=== PATIENT | male | born 2000 | race Caucasian/White ===

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

== ENCOUNTER 2021-05-17 12:30 | Emergency (ER) | payer BC, MEDICAID, OTHER ==
[~2021-05-17] VITALS: Ht 177.8 cm; Wt 84.0 kg
[~2021-05-17 12:30] MED LIST changes: +ADDE20CA3; +ARIP10TA32; +FERR325T18; +GUAN3TAB4
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
[2021-05-17 13:36] VITALS: BP 146/75
[2021-05-17] MEDS ORDERED: HYDR-3713 PO (14:02)
[2021-05-17] MEDS ORDERED: NORCO, ANEXSIA 5/325MG TABLET (HYDROcodone/ACETAMINOPHEN) PO ONE (14:20)
== END 2021-05-17 14:50 | disposition home or self-care (01) ==
LOC: EDBD 12:30 → M ED 12:30
DX: S42.002A Fracture of unspecified part of left clavicle, initial encounter for closed fracture (principal); V49.49XA Driver injured in collision with other motor vehicles in traffic accident, initial encounter; Y92.410 Unspecified street and highway as the place of occurrence of the external cause; K21.9 Gastro-esophageal reflux disease without esophagitis; Z79.899 Other long term (current) drug therapy; Z91.018 Allergy to other foods

== ENCOUNTER 2021-05-23 15:24 | Day surgery (SDC) | payer OTHER ==
[~2021-05-23] VITALS: Ht 190.5 cm; Wt 76.1 kg
[~2021-05-23 15:24] MED LIST changes: -HYDR-4571 PO; -IBUP-1730 PO; -PROAAER10 INH
[2021-05-23] MEDS ORDERED: TRANEXAMIC ACID INJection 1,000 MG in NS 100 ML IV ONE ×2 (16:25→18:00)
[2021-05-23] MEDS ORDERED: ceFAZolin SOD 2 GM in IV 1 EA IV ONE (16:25)
[2021-05-23 21:15] VITALS: BP 138/64
[2021-05-23] MEDS ORDERED: MORPHINE 2 MG/ML 1ML VIAL (J2270) IV PRN (21:45)
[2021-05-23] MEDS ORDERED: IBUP-1730 PO (23:02)
[2021-05-23] MEDS ORDERED: PROAAER10 INH (23:02)
[2021-05-23] MEDS ORDERED: HYDR-4571 PO (23:02)
[2021-05-23] MEDS ORDERED: HOME MED LIST COMPLETE! XX SCH (23:05)
[2021-05-24] MEDS ORDERED: NS 1,000 ML IV ONE
[2021-05-24] MEDS ORDERED: ALBUTEROL 90 MCG/ACT 8GM HFA INHALER INH PRN (00:25)
[2021-05-24 06:00] VITALS: BP 123/57
[2021-05-24] MEDS: KETOROLAC 30 MG/ML 1ML VIAL IV PRN (13:59)
[2021-05-24 14:00] VITALS: BP 123/58
[2021-05-24 21:00] VITALS: BP 124/58
[2021-05-25] MEDS: KETOROLAC 30 MG/ML 1ML VIAL IV PRN (04:06)
== END 2021-05-25 08:48 | disposition home or self-care (01) ==
LOC: M SDC 15:24 → M MSPAV 21:16 → M SDC 05-25 08:48
PROVIDERS: ATTEND Orthopaedic Surgery
DX: Z53.8 Procedure and treatment not carried out for other reasons (principal); S42.022A Displaced fracture of shaft of left clavicle, initial encounter for closed fracture; V49.60XA Unspecified car occupant injured in collision with unspecified motor vehicles in traffic accident, initial encounter; Y92.410 Unspecified street and highway as the place of occurrence of the external cause; F90.9 Attention-deficit hyperactivity disorder, unspecified type; J45.909 Unspecified asthma, uncomplicated; Z91.018 Allergy to other foods
CPT/HCPCS: 96374; 96375; 96376; J1885; J2270; U0002

== ENCOUNTER → 2021-05-23 | Outpatient (CLI) | payer OTHER ==
[~2021-05-23] MED LIST changes: +HYDR-3713 PO; +HYDR-4571 PO; +IBUP-1730 PO; +PROAAER10 INH
--- NOTE | 2021-05-23 12:32 | REP ---
INDICATION: RT CLAVICLE COMPARSION VIEWS, CERVICALGIA COMPARISON: None. TECHNIQUE: Two views of the right clavicle FINDINGS: Sternoclavicular and acromioclavicular joints appear intact and relatively normal. No evidence for acute or healed injury. IMPRESSION: 1. Normal right clavicle radiographs <Electronically signed by Shahid Yousif > 05/23/21 [id number]
--- NOTE | 2021-05-23 12:34 | REP ---
INDICATION: RT CLAVICLE COMPARSION VIEWS, CERVICALGIA COMPARISON: None. TECHNIQUE: AP, lateral, swimmer's and open-mouth views. FINDINGS: Cervical spine is normal. There is a comminuted displaced left mid shaft clavicle fracture. IMPRESSION: Normal cervical spine. Comminuted displaced left mid shaft clavicle fracture. <Electronically signed by Shahid Yousif > 05/23/21 0845
== END ==
LOC: M SOG 10:55
PROVIDERS: ATTEND Orthopaedic Surgery
DX: S42.022A Displaced fracture of shaft of left clavicle, initial encounter for closed fracture (principal); M54.2 Cervicalgia; W18.30XA Fall on same level, unspecified, initial encounter; Y92.009 Unspecified place in unspecified non-institutional (private) residence as the place of occurrence of the external cause

== ENCOUNTER → 2021-05-26 | Outpatient (CLI) | payer OTHER ==
[~2021-05-26] MED LIST changes: +HYDR-4571 PO; +IBUP-1730 PO; +PROAAER10 INH
== END ==
LOC: M LABSMTC 09:09
PROVIDERS: ATTEND Anesthesiology
DX: Z01.812 Encounter for preprocedural laboratory examination (principal)

== ENCOUNTER 2021-05-30 13:26 | Day surgery (SDC) | payer OTHER ==
[~2021-05-30] VITALS: Ht 190.5 cm; Wt 75.2 kg
[~2021-05-30 13:26] MED LIST changes: +LR 1,000 ML IV ONE; +ceFAZolin SOD 2 GM in IV 1 EA IV ONE
[2021-05-30] MEDS ORDERED: METOCLOPRAMIDE INJ 10MG/2ML VIAL (J2765 PER 1) As Ordered ONE (14:42)
[2021-05-30] MEDS ORDERED: ONDANSETRON 4MG/2ML VIAL As Ordered ONE ×2 (14:42→20:25)
[2021-05-30] MEDS ORDERED: ROCURONIUM BROMIDE 50 MG/5 ML VIAL As Ordered ONE ×2 (14:42→16:20)
[2021-05-30] MEDS ORDERED: fentaNYL 250 MCG/5 ML INJECTION (J3010) As Ordered ONE (14:42)
[2021-05-30] MEDS ORDERED: MIDAZOLAM INJ 2MG/2ML VIAL (J2250 PER 1MG) As Ordered ONE (14:42)
[2021-05-30] MEDS ORDERED: LIDOCAINE 2% 100MG/5ML SDV (FOR ANES.) As Ordered ONE (14:42)
[2021-05-30] MEDS ORDERED: propofoL 200 MG/20 ML VIAL As Ordered ONE (14:42)
[2021-05-30] MEDS ORDERED: SUGAMMADEX SODIUM 500 MG/5 ML VIAL (BRIDION) As Ordered ONE (14:42)
[2021-05-30] MEDS ORDERED: dexameTHASONE 4 MG/ML 1ML VIAL (J1100 PER 1MG) As Ordered ONE (14:42)
[2021-05-30] MEDS ORDERED: TRANEXAMIC ACID 100 MG/ML 10ML VIAL As Ordered ONE (15:39)
[2021-05-30] MEDS ORDERED: PHENYLephrine 500MCG 5ML (100MCG/ML) SYRINGE As Ordered ONE ×2 (16:37→18:05)
[2021-05-30] MEDS ORDERED: VANCOMYCIN 1000MG/20ML VIAL As Ordered ONE (17:43)
[2021-05-30] MEDS ORDERED: BUPIVACAINE LIPOSOME/PF 1.3% 20ML VIAL (13.3MG/ML)(EXPAREL)(C9290 PER1MG) As Ordered ONE (19:30)
[2021-05-30] MEDS ORDERED: ceFAZolin 2 GM/D5W 50 ML IV BAG (J0690 PER 500MG) As Ordered ONE (19:38)
[2021-05-30] MEDS ORDERED: LR 1,000 ML IV SCH (20:35)
[2021-05-30] MEDS ORDERED: ONDANSETRON 4MG/2ML VIAL IV PRN (20:35)
[2021-05-30] MEDS ORDERED: oxyCODONE 5MG TAB PO PRN (20:35)
[2021-05-30] MEDS ORDERED: fentaNYL 100 MCG/2 ML INJECTION (J3010) IV PRN (20:35)
[2021-05-30 21:50] VITALS: BP 143/85
[2021-05-30] MEDS ORDERED: PROMETHAZINE INJ 25 MG/ML VIAL (J2550) IV STA (22:24)
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
--- NOTE | 2021-05-31 08:43 | REP ---
INDICATION: LEFT CLAVICLE FRACTURE. COMPARISON: 05/23/2021. TECHNIQUE: Multiple C-arm views left clavicle. FINDINGS: Metallic internal fixation is placed for a fracture of the left clavicle. Fracture appears well aligned on the final image. IMPRESSION: 42 seconds fluoroscopy time utilized. <Electronically signed by Owen Fernández > 05/31/21 [id number]
== END 2021-05-30 22:12 | disposition home or self-care (01) ==
LOC: M SDC 13:26
PROVIDERS: ATTEND Orthopaedic Surgery
DX: S42.022A Displaced fracture of shaft of left clavicle, initial encounter for closed fracture (principal); V49.60XA Unspecified car occupant injured in collision with unspecified motor vehicles in traffic accident, initial encounter; Y92.410 Unspecified street and highway as the place of occurrence of the external cause; M54.2 Cervicalgia; F90.9 Attention-deficit hyperactivity disorder, unspecified type; K21.9 Gastro-esophageal reflux disease without esophagitis; J45.909 Unspecified asthma, uncomplicated; F81.9 Developmental disorder of scholastic skills, unspecified; R06.83 Snoring; Z91.018 Allergy to other foods; Z79.899 Other long term (current) drug therapy; Z79.891 Long term (current) use of opiate analgesic; Z72.0 Tobacco use
CPT/HCPCS: 23515; 76000; C1713; C9290; J0690; J1100; J2250; J2370; J2405; J2765; J3010; J3370

== ENCOUNTER → 2021-07-18 | Outpatient (CLI) | payer OTHER ==
[~2021-07-18] MED LIST changes: -LR 1,000 ML IV ONE; -ceFAZolin SOD 2 GM in IV 1 EA IV ONE
== END ==
LOC: M SOG 08:33
PROVIDERS: ATTEND Orthopaedic Surgery
DX: Z47.89 Encounter for other orthopedic aftercare (principal)

== ENCOUNTER 2021-10-14 14:23 | Emergency (ER) | payer OTHER ==
[~2021-10-14] VITALS: Ht 190.5 cm; Wt 77.0 kg
[2021-10-14 18:50] VITALS: BP 124/80
== END 2021-10-14 18:52 | disposition home or self-care (01) ==
LOC: M ED 14:23
DX: S29.011A Strain of muscle and tendon of front wall of thorax, initial encounter (principal); X58.XXXA Exposure to other specified factors, initial encounter; Y92.9 Unspecified place or not applicable; Y93.9 Activity, unspecified; Y99.9 Unspecified external cause status

== ENCOUNTER 2022-04-16 14:02 | Emergency (ER) | payer OTHER ==
[~2022-04-16] VITALS: Ht 188 cm; Wt 81.8 kg
[2022-04-16 14:10] VITALS: BP 123/81
[2022-04-16] MEDS ORDERED: ALBU8.5H (14:12)
== END 2022-04-16 16:14 | disposition home or self-care (01) ==
LOC: M ED 14:02 → EDBD 14:02 → M ED 16:14
DX: S12.501A Unspecified nondisplaced fracture of sixth cervical vertebra, initial encounter for closed fracture (principal); R07.0 Pain in throat; Y04.0XXA Assault by unarmed brawl or fight, initial encounter; J45.909 Unspecified asthma, uncomplicated; F90.9 Attention-deficit hyperactivity disorder, unspecified type; F91.3 Oppositional defiant disorder; D64.9 Anemia, unspecified; Z91.018 Allergy to other foods; Z87.81 Personal history of (healed) traumatic fracture

== ENCOUNTER 2023-08-12 14:00 | Emergency (ER) | payer OTHER ==
[~2023-08-12] VITALS: Ht 190.5 cm; Wt 82.7 kg
[~2023-08-12 14:00] MED LIST changes: +ALBU8.5H; +METH18TA7; -METH18TA8
[2023-08-12] MEDS ORDERED: VYVA30CA4 (14:06)
[2023-08-12 16:52] LABS: BASO # 0.1 10^3/uL (0.0-0.2); BASO % 0.8 % (0.0-1.0); EOS # 0.3 10^3/uL (0.0-0.5); EOS % 4.6 % (0.0-3.0); HEMATOCRIT 43.8 % (42.0-52.0); HEMOGLOBIN 15.2 g/dl (13.5-17.5); LYMPH # 1.5 10^3/uL (1.5-5.0); LYMPH % 23.9 % (24.0-44.0); MEAN CORPUSCULAR HEMOGLOBIN 31.7 pg (27.0-33.0); MEAN CORPUSCULAR HGB CONC 34.7 g/dl (32.0-36.5); MEAN CORPUSCULAR VOLUME 91.4 fl (80.0-96.0); MONO # 0.7 10^3/uL (0.0-0.8); MONO % 10.5 % (2.0-8.0); NEUTROPHILS # 3.8 10^3/uL (1.5-8.5); NEUTROPHILS % 59.9 % (36.0-66.0); PLATELET COUNT, AUTOMATED 279 10^3/uL (150-450); RED BLOOD COUNT 4.79 10^6/uL (4.30-6.10); WHITE BLOOD COUNT 6.4 10^3/uL (4.0-10.0)
[2023-08-12 17:16] LABS: INR 1.09; PROTHROMBIN TIME 13.8 SECONDS (12.5-14.5)
[2023-08-12 17:19] LABS: LIPASE 27 U/L (12-53)
[2023-08-12 17:22] LABS: ALBUMIN 4.5 G/DL (3.2-5.2); ALKALINE PHOSPHATASE 101 U/L (46-116); ALT/SGPT 44 U/L (7.0-40); AST/SGOT 25 U/L (<34); BILIRUBIN,DIRECT 0.2 MG/DL (<0.4); BILIRUBIN,TOTAL 0.8 MG/DL (0.3-1.2); BLOOD UREA NITROGEN 12 MG/DL (9-23); CALCIUM LEVEL 9.5 MG/DL (8.5-10.1); CARBON DIOXIDE LEVEL 29 MMOL/L (20-31); CHLORIDE LEVEL 102 MMOL/L (98-107); CK-MB VALUE MASS < 1.0 NG/ML (<3.6); CREATININE FOR GFR 0.69 MG/DL (0.70-1.30); GLOMERULAR FILTRATION RATE > 60.0 (>60); GLUCOSE, FASTING 80 MG/DL (60-100); POTASSIUM SERUM 4.3 MMOL/L (3.5-5.1); SODIUM LEVEL 137 MMOL/L (136-145); TOTAL PROTEIN 7.6 G/DL (5.7-8.2)
[2023-08-12 17:23] LABS: CPK CREATINE PHOSPHOKINASE 119 U/L (46-171); MB/CK RELATIVE INDEX 0.84 (< OR =4)
[2023-08-12 17:45] LABS: RSV AMPLIFICATION NEGATIVE (NEGATIVE)
[2023-08-12] MEDS: KETOROLAC 30 MG/ML 1ML VIAL IV ONE (18:04)
[2023-08-12] MEDS: NS 1,000 ML IV ONE (18:04)
[2023-08-12 18:10] LABS: CK-MB VALUE MASS < 1.0 NG/ML (<3.6)
[2023-08-12 18:11] LABS: D-DIMER QUANT < 0.27 ug/mL (<0.5)
[2023-08-12 18:12] LABS: CPK CREATINE PHOSPHOKINASE 108 U/L (46-171); MB/CK RELATIVE INDEX 0.92 (< OR =4)
[2023-08-12] MEDS ORDERED: IBUP-1022 PO (18:55)
[2023-08-12 19:04] VITALS: BP 129/69; TEMP 97.5; O2SAT 97
== END 2023-08-12 19:28 | disposition home or self-care (01) ==
LOC: M ED 14:00
DX: R07.9 Chest pain, unspecified (principal); K21.9 Gastro-esophageal reflux disease without esophagitis; J45.909 Unspecified asthma, uncomplicated; Z91.018 Allergy to other foods; Z79.51 Long term (current) use of inhaled steroids; Z79.1 Long term (current) use of non-steroidal anti-inflammatories (NSAID); Z79.899 Other long term (current) drug therapy
CPT/HCPCS: 71045; 80048; 80076; 82550; 82553; 83690; 85025; 85379; 85610; 87631; 93005; 93041; 94760; 96361; 96374; 99284; J1885